=== PATIENT | male | born 1990 | race African-American/Black ===

== ENCOUNTER 2019-10-18 12:56 | Emergency (ER) | payer SELFPAY ==
[2019-10-18 13:02] VITALS: BP 143/81
[2019-10-18] MEDS ORDERED: PREDNISONE 20 MG TABLET PO ONE (13:29)
[2019-10-18] MEDS ORDERED: FAMOTIDINE 20 MG TABLET PO ONE (13:30)
--- NOTE | 2019-10-18 13:34 | ER Document Report ---
HPI - HPI Time Seen by Provider: 10/18/19 13:26 Notes: CHIEF COMPLAINT: Hives HPI: 29-year-old male presenting to the emergency department complaining of urticaria. Has been ongoing for 3 to 4 days. Believes it might of been a detergent that they switched to earlier in the week. Complains of hives to the axilla, waistline, back of the neck, hands, legs. No shortness of breath no fever no cough. No sore throat. No new medications or foods. Took Benadryl at home which did help resolve the rash for several hours but then it would come back. ROS: See HPI - all other systems were reviewed and are otherwise negative Constitutional: no fever Eyes: no drainage, no blurred vision ENT: no runny nose, no sore throat Cardiovascular: no chest pain Resp: no SOB, no cough GI: no vomiting, no diarrhea, no abdominal pain : no dysuria Integumentary: + rash Allergy: + hives Musculoskeletal: no extremity pain or swelling Neurological: no numbness/tingling, no weakness MEDICATIONS: I agree with the patient medications as charted by the RN. ALLERGIES: I agree with the allergies as charted by the RN. PAST MEDICAL HISTORY/PAST SURGICAL HISTORY: Reviewed and agree as charted by RN. SOCIAL HISTORY: Reviewed and agree as charted by RN. FAMILY HISTORY: No significant familial comorbid conditions directly related to patient complaint EXAM: Reviewed vital signs as charted by RN. CONSTITUTIONAL: Alert and oriented and responds appropriately to questions. Well-appearing; well-nourished HEAD: Normocephalic; atraumatic EYES: PERRL; Conjunctivae clear, sclerae non-icteric ENT: normal nose; no rhinorrhea; moist mucous membranes; pharynx without lesions noted, no uvula edema or deviation, no tonsillar hypertrophy, phonation normal NECK: Supple without meningismus; non-tender; no cervical lymphadenopathy, no masses CARD: RRR; no murmurs, no clicks, no rubs, no gallops; symmetric distal pulses RESP: Normal chest excursion without splinting or tachypnea; breath sounds clear and equal bilaterally; no wheezes, no rhonchi, no rales, pulse oximetry 100% on room air not hypoxic ABD/GI: Normal bowel sounds; non-distended; soft, non-tender, no rebound, no guarding; no palpable organomegaly or masses. BACK: The back appears normal and is non-tender to palpation, there is no CVA tenderness EXT: Normal ROM in all joints; non-tender to palpation; no cyanosis, no effusions, no edema SKIN: Normal color for age and race; warm; dry; good turgor; generalized scattered urticarial lesions are noted on the bilateral legs axilla waistline and posterior neck. Lesions do janelle with pressure. No petechia purpura or vesicles. NEURO: Moves all extremities equally; Motor and sensory function intact PSYCH: The patient's mood and manner are appropriate. Grooming and personal hygiene are appropriate. MDM: 29-year-old male with generalized urticaria. No respiratory difficulty. Will start on steroids antihistamines return instructions Past Medical History - Social History Smoking Status: Unknown if Ever Smoked Family History: Reviewed & Not Pertinent Course - Vital Signs Vital signs: Temp Pulse Resp BP Pulse Ox 98.6 F 63 18 143/81 H 98 10/18/19 13:01 10/18/19 13:01 10/18/19 13:01 10/18/19 13:10/18/19 13:01 Discharge - Discharge Clinical Impression: Urticaria Condition: Stable Disposition: HOME, SELF-CARE Instructions: Acute Urticaria ([facility]) Additional Instructions: 1. take the medications as prescribed 2. take Benadryl 25-50 mg three times daily for 3-4 days 3. follow up recheck with PCP for further evaluation and treatment, call for appt. 4. return for any shortness of breath or worsening rash or condition Prescriptions: Prednisone [Deltasone 20 mg Tablet] 2 tab PO DAILY 5 Days #10 tablet Famotidine [Pepcid 20 mg Tablet] 20 mg PO BID #12 tablet Referrals: NIGEL GAINES MD [COMMUNITY BASED STAFF] - Follow up as needed
== END 2019-10-18 13:39 | disposition home or self-care (01) ==
LOC: ER 12:56
DX: L50.9 Urticaria, unspecified (principal)
CPT/HCPCS: 99283; J7512

== ENCOUNTER 2019-10-22 11:40 | Emergency (ER) | payer SELFPAY ==
[2019-10-22 12:03] VITALS: BP 139/91
--- NOTE | 2019-10-22 13:04 | ER Document Report ---
HPI - HPI Patient complains to provider of: Hives Time Seen by Provider: 10/22/19 12:53 Onset: Last week Onset/Duration: Persistent Quality of pain: No pain Severity: None Pain Level: Denies Context: 29-year-old male presented to ED for allergic urticaria to arms and legs. He states he was seen a couple days ago and was given prednisone but he did not think he was getting enough and his hives are back. He was seen on 17 October and given 5 days worth of prednisone. I have instructed him that we cannot continually give steroids but he will need to follow-up with an transition mgr. I did give him page slowly decreasing dose of steroids but told him to call the primary care and transition mgr immediately tomorrow to schedule follow-up. I did te ll him that he would need to continue taking the Pepcid and Benadryl for his itching. I also informed him that when he goes out in the heat or takes a hot shower it will make the rash worse and more uncomfortable. Exacerbated by: Denies Relieved by: Denies Similar symptoms previously: Yes Recently seen / treated by doctor: Yes - ROS ROS below otherwise negative: Yes - CONSTITUTIONAL Constitutional: DENIES: Fever, Chills - EENT EENT: DENIES: Sore Throat, Ear Pain, Nasal Drainage-Clear, Nasal Drainage- Purulent, Congestion, Eye problems - NEURO Neurology: DENIES: Headache, Weakness, Vision blurred, Dizzinesss / Vertigo - CARDIOVASCULAR Cardiovascular: DENIES: Chest pain - RESPIRATORY Respiratory: DENIES: Trouble Breathing, Coughing - GASTROINTESTINAL Gastrointestinal: DENIES: Abdominal Pain, Nausea, Patient vomiting, Diarrhea, Constipation, Black / Bloody Stools - URINARY Urinary: DENIES: Dysuria, Urgency, Frequency - REPRODUCTIVE Reproductive: DENIES: :, Postmenopausal, Abnormal bleeding / discharge - MUSCULOSKELETAL Musculoskeletal: DENIES: Extremity pain, Back Pain, Neck Pain, Swelling - DERM Skin Color: Other - Allergic urticaria Skin Problems: None Past Medical History - General Information source: Patient - Social History Smoking Status: Former Smoker Chew tobacco use (# tins/day): No Frequency of alcohol use: Occasional Drug Abuse: None Family History: Reviewed & Not Pertinent Patient has suicidal ideation: No Patient has homicidal ideation: No - Past Medical History Cardiac Medical History: Reports: None Pulmonary Medical History: Reports: None EENT Medical History: Reports: None Neurological Medical History: Reports: None Endocrine Medical History: Reports: None Renal/ Medical History: Reports: None Malignancy Medical History: Reports None GI Medical History: Reports: None Musculoskeletal Medical History: Reports None Skin Medical History: Reports None Psychiatric Medical History: Reports: None Traumatic Medical History: Reports: None Infectious Medical History: Reports: None Surgical Hx: Negative Past Surgical History: Reports: None Vertical Provider Document - CONSTITUTIONAL Agree With Documented VS: Yes Exam Limitations: No Limitations General Appearance: WD/WN, No Apparent Distress - HEENT HEENT: Atraumatic, Normal ENT Exam, Normocephalic, PERRLA - NECK Neck: Normal Inspection - RESPIRATORY Respiratory: Breath Sounds Normal - CARDIOVASCULAR Cardiovascular: Regular Rate, Regular Rhythm, No Murmur - GI/ABDOMEN Gastrointestinal: Abdomen Soft, Abdomen Non-Tender, No Organomegaly, Normal Bowel Sounds - BACK Back: Normal Inspection - MUSCULOSKELETAL/EXTREMETIES Musculoskeletal/Extremeties: MAEW, FROM, Non-Tender - NEURO Level of Consciousness: Awake, Alert, Appropriate Motor/Sensory: No Motor Deficit, No Sensory Deficit, Positive Babinski's Sign Deep Tendon Reflexes: 2+ - DERM Integumentary: Rash - Urticaria Course - Re-evaluation Re-evalutation: 10/22/19 22:23 Patient was given instructions for allergic urticaria treatment. He was also given strict instructions that he needs to follow-up with a primary care and transition mgr as the emergency room cannot continually treat an allergic urticaria. This needs to be seen as outpatient find the cause of the rash. - Vital Signs Vital signs: Temp Pulse Resp BP Pulse Ox 98.8 F 63 15 139/91 H 98 10/22/19 12:02 10/22/19 12:02 10/22/19 12:02 10/22/19 12:10/22/19 12:02 Discharge - Discharge Clinical Impression: Urticaria Condition: Stable Disposition: HOME, SELF-CARE Additional Instructions: ACUTE ALLERGIC REACTION: Your symptoms are due to an allergic reaction. Allergy can cause hives, swelling of the hands, feet, and face, hoarseness, and difficulty swallowing or breathing. It may be due to exposure to medication, animal dander, foods, infection, or insect bites. Medication is a common cause, even when prior use of this same medication caused no problems. Acute treatment may include adrenalin and antihistamines. Usually, the specific allergic agent can't be identified unless repeated episodes occur. Home treatment includes the following: (1) Stop any suspicious medications. This will be discussed with you. (2) Oral antihistamines for the next four to five days. Example, diphenhydramine (Benadryl) every four hours. (3) You may also use cimetidine (Tagamet), ranitidine (Zantac), or famotidine (Pepcid) every four hours if diphenhydramine is not controlling itching and hives. (4) Avoid aspirin until the hives completely disappear. (5) Avoid hot baths or showers until the hives are completely gone. Call the doctor if faintness, difficulty swallowing, tightness in the chest, or wheezing occurs. STEROID MEDICATION: You have been given a medicine of the cortisone/steroid class. This medication is used to control inflammation or allergy. It is usually only given for a short period of time, until the acute process subsides. There are usually no side effects from short-term use of cortisone-like medications. Some persons feel an increased sense of well-being and are not sleepy at bedtime. Long-term use of cortisone medications is best avoided, unless required for a severe condition. If your condition does not remit, or relapses after the course of corticosteroid medication, you should consult your physician. ACID-SUPPRESSING MEDICATION: You have a prescription for medicine which reduces the stomach's secretion of acid. Examples include Zantac, Tagament, and Pepcid. These drugs are often used to allow healing of ulcers or esophagitis. They may be needed to prevent recurrence of ulcers in some patients, or to prevent damage from acid reflux in the esophagus. Take all medication as prescribed, even after the pain is gone. Regular antacids may be added as needed if you have symptoms while taking this medicine. These medications sometimes are prescribed for allergic reactions because they have anti-histaminic effects and relieve the rash and itching of the reaction. There are usually no side effects from this medication. But, in rare cases and particularly in the elderly, serious problems can occur. Contact your doctor if there is fever, rash, hallucinations, confusion, or unusual bruising. Contact your doctor at once if you develop lightheadedness, black or bloody stool, or bloody vomitus. USE OF DIPHENHYDRAMINE: The use of diphenhydramine (Benadryl) has been recommended to control allergic symptoms. The 25 mg strength is available over- the-counter, as well as the elixir. This antihistamine is used for many symptoms. It's useful for itching, watering eyes and nose, allergic swelling, hives, and insect stings. The medication can be repeated four times daily. Age Elixir (12.5 mg/tsp) 25 mg pill 2-3 yr 1/2 tsp 4-8 yr 1 tsp 9-14 yr 2 tsp one tab adult 1-2 tabs Antihistamines may cause drowsiness, especially with the first dose. Do not operate machinery or drive while under the effects of the medication. Do not combine the medication with alcohol, or with any other medication without talking to your doctor. FOLLOW-UP CARE: If you have been referred to a physician for follow-up care, call the physicians office for an appointment as you were instructed or within the next two days. If you experience worsening or a significant change in your symptoms, notify the physician immediately or return to the Emergency Department at any time for re-evaluation. [facility] Open ? Closes 6PM DIRECTIONS Yuliet Rodriguez MD [employer] [address] Dominick Benjamin MD [address] [place] [address] Prescriptions: Prednisone [Deltasone 10 mg Tablet] 10 mg PO ASDIR PRN #21 tablet PRN Reason: Forms: Elevated Blood Pressure, Return to Work Referrals: NIGEL GAINES MD [COMMUNITY BASED STAFF] - Follow up as needed
== END 2019-10-22 13:20 | disposition home or self-care (01) ==
LOC: ER 11:40
DX: L50.0 Allergic urticaria (principal); Z87.891 Personal history of nicotine dependence
CPT/HCPCS: 99283

== ENCOUNTER 2019-10-26 11:19 | Emergency (ER) | payer SELFPAY ==
[2019-10-26] MEDS ORDERED: DIPHENHYDRAMINE HCL 50 MG/ML VIAL IV ONE (11:56)
[2019-10-26] MEDS ORDERED: EPINEPHRINE INJ/PF 1 MG/1 ML AMPULE IM ONE ×2 (11:56→14:04)
[2019-10-26] MEDS ORDERED: METHYLPREDNISOLONE INJ 125 MG/2 ML SDV IV ONE (11:56)
--- NOTE | 2019-10-26 11:58 | ER Document Report ---
ED Medical Screen (RME) - General Chief Complaint: Allergic Reaction Stated Complaint: HIVES/BREATHING DIFFICULTY Time Seen by Provider: 10/26/19 11:44 Mode of Arrival: Ambulatory Information source: Patient Notes: 29-year-old male patient has been seen multiple times for allergic reaction this time he is lips and mouth are swollen and he has some shortness of breath. He will need epinephrine steroids and Benadryl this time. I have contacted [facility] and asked them to get him in touch with social work instructor tomorrow. I have greeted and performed a rapid initial assessment of this patient. A comprehensive ED assessment and evaluation of the patient, analysis of test results and completion of medical decision making process will be conducted by an additional ED providers. - Related Data Allergies/Adverse Reactions: No Known Allergies Allergy (Verified 10/22/19 12:50) Past Medical History - Social History Frequency of alcohol use: None Drug Abuse: None Physical Exam - Vital signs Vitals: Temp Pulse Resp BP Pulse Ox 98.4 F 64 20 171/94 H 100 10/26/19 11:23 10/26/19 11:23 10/26/19 11:23 10/26/19 11:23 10/26/19 11:23 Course - Vital Signs Vital signs: Temp Pulse Resp BP Pulse Ox 98.4 F 64 20 171/94 H 100 10/26/19 11:23 10/26/19 11:23 10/26/19 11:23 10/26/19 11:23 10/26/19 11:23
[2019-10-26] MEDS ORDERED: FAMOTIDINE INJ/PF 20 MG/2 ML SDV IV ONE (12:20)
--- NOTE | 2019-10-26 14:14 | ER Document Report ---
ED General - General Chief Complaint: Allergic Reaction Stated Complaint: HIVES/BREATHING DIFFICULTY Time Seen by Provider: 10/26/19 11:44 Mode of Arrival: Ambulatory - HPI Notes: Chief complaint: Rash, itching and swelling of lips History of present illness: 29-year-old male seen here by midlevel provider on October 17 with new onset of an urticarial rash with undetermined precipitating factor now returns with ongoing rash and interval development of some swelling of his lips. Patient does not take any regular medications prescription or [id number]. He had used some new aftershave lotion before the original onset of his rash but discontinued this at that time and has not uses any further. He denies consumption of new foods and does not have any new pets. Patient was started on H1 and H2 dorothy and also a burst of oral prednisone at time of his first visit. His rash initially got somewhat better but came back again precipitating a second visit on October 21. He was restarted on a longer course of steroids encouraged to continue H1 and H2 dorothy and follow-up with his primary care doctor. He returns today having taken all the medication as instructed but he reports that his rash is persistent primarily around the waistline and over the ventral aspect of both wrists. This is very pruritic. He also today has developed swelling of his lower lip and some slight tightness in his throat. He awakened with the symptoms this morning. - Related Data Allergies/Adverse Reactions: No Known Allergies Allergy (Verified 10/22/19 12:50) Past Medical History - General Information source: Patient, Relative, [facility] Records - Social History Smoking Status: Never Smoker Frequency of alcohol use: None Drug Abuse: None Family History: Reviewed & Not Pertinent Review of Systems - Review of Systems Notes: Constitutional: Negative for fever. HENT: As per HPI. Eyes: Negative for visual changes. Cardiovascular: Negative for chest pain. Respiratory: Negative for shortness of breath. Gastrointestinal: Negative for abdominal pain, vomiting or diarrhea. Genitourinary: Negative for dysuria. Musculoskeletal: Negative for back pain. Skin: As per HPI. Neurological: Negative for headaches, weakness or numbness. 10 point ROS negative except as marked above and in HPI. Physical Exam - Vital signs Vitals: Temp Pulse Resp BP Pulse Ox 98.4 F 64 20 171/94 H 100 10/26/19 11:23 10/26/19 11:23 10/26/19 11:23 10/26/19 11:23 10/26/19 11:23 - Notes Notes: GENERAL: Well-developed well-nourished with facial edema primarily affecting the lower lip. SKIN: Good turgor. Scattered faint urticarial rash of volar aspect of both forearms and anterior trunk. HEAD: Normocephalic atraumatic. EYES: PERRLA. EOMI. Conjunctivae and sclerae clear. EARS: CANALS AND TMS CLEAR. NOSE: CLEAR. MOUTH/THROAT: Moist mucosa. No visible edema of tongue. No visible edema of uvula good dentition. No stridor or edema. No drooling. NECK: Supple. No masses or thyromegaly. No adenopathy. Carotids 2+ without bruits. No JVD. BACK: Symmetrical without tenderness. CHEST: Respirations unlabored. Breath sounds clear and symmetrical. HEART: Regular rhythm. No murmur gallop or rub. ABDOMEN: Soft nontender without masses, organomegaly or rebound. Bowel sounds normally active. No bruits. GENITALIA: Deferred. EXTREMITIES: No edema. No calf tenderness. Cap refill less than 1.5 seconds. Dorsalis pedis and posterior tibial pulses 3+ and symmetrical. NEUROLOGICAL: GCS 15. Alert and oriented x3. Normal gait. Fluent speech. Cranial nerves II through XII intact. Sensorimotor and cerebellar normal. Normal tone. PSYCHIATRIC: Appropriate affect. Course - Re-evaluation Re-evalutation: 10/26/19 14:15 Recheck at this time shows significant improvement. Lower lip edema is about 50% resolved. Patient is speaking and swallowing without any difficulty. His chest is clear and he is hemodynamically stable. He is moderately sedated from the IV Benadryl. I will give him an additional dose of IV epinephrine and observe him here for a longer period of time before making further disposition. 10/26/19 15:55 Edema and rash resolved. Patient feels better and wants to eat and also requests discharge. I think this is appropriate. Advised him to see his primary care doctor tomorrow and needs to get a referral to an director of teenage activities. Continue present meds. I have also given a prescription for an EpiPen. He understands he may return here immediately for new or worsening symptoms. Findings, clinical impression and plan of treatment have been discussed with patient/family. Understanding of current findings and recommendations has been acknowledged by them and there is agreement regarding disposition and follow-up. - Vital Signs Vital signs: Temp Pulse Resp BP Pulse Ox 98.4 F 64 19 132/65 H 100 10/26/19 11:23 10/26/19 11:23 10/26/19 15:31 10/26/19 15:31 10/26/19 15:31 Critical Care Note - Critical Care Note Total time excluding time spent on procedures (mins): 35 - IV, O2, monitor. IM epinephrine. IV Benadryl and Pepcid. Discharge - Discharge Clinical Impression: Anaphylaxis Qualifiers: Encounter type: initial encounter Qualified Code(s): T78.2XXA - Anaphylactic shock, unspecified, initial encounter Condition: Stable Disposition: HOME, SELF-CARE Additional Instructions: Angioedema Angioedema is an allergic swelling of the soft tissues of the body. The lips and mouth are most commonly involved. Food, even something you've eaten frequently, can cause angioedema. In many cases it's not obvious what caused the swelling. Acute treatment may include adrenalin and antihistamines. If the cause is known, you must avoid this food or medicine in the future. If angioedema affects your air passages, it can be life-threatening. Return at once if you develop shortness of breath, faintness, severe pain, inability to swallow, or if swelling worsens.swelling worsens. See your doctor tomorrow morning and discussed need for referral to an director of teenage activities. You have been given an EpiPen for emergency use. Continue your other regular medications as previously prescribed.Epinephrine Prescriptions: Epinephrine [Epipen 2-Eleuterio] 0.3 mg IM ONCE PRN #1 packet PRN Reason: Forms: Return to Work [facility] - Follow up as needed
[2019-10-26 16:12] VITALS: BP 116/63
== END 2019-10-26 16:17 | disposition home or self-care (01) ==
LOC: ER 11:19
DX: T78.2XXA Anaphylactic shock, unspecified, initial encounter (principal); L50.9 Urticaria, unspecified; X58.XXXA Exposure to other specified factors, initial encounter
CPT/HCPCS: 99284; 96372; 96374; 96375; J1200; J0171; J2930; S0028

== ENCOUNTER 2020-01-01 15:02 | Emergency (ER) | payer SELFPAY ==
[2020-01-01] MEDS ORDERED: FAMOTIDINE 20 MG TABLET PO ONE (15:14)
[2020-01-01] MEDS ORDERED: HYDROXYZINE HCL 10 MG TABLET PO ONE (15:14)
[2020-01-01] MEDS ORDERED: METHYLPREDNISOLONE INJ 125 MG/2 ML SDV IM ONE (15:14)
--- NOTE | 2020-01-01 16:36 | ER Document Report ---
ED Allergic Reaction - General Chief Complaint: Allergic Reaction Stated Complaint: POSSIBLE ALLERGIC REACTION, DIFFICULTY BREATHING Time Seen by Provider: 01/01/20 15:07 Primary Care Provider: [facility] [Provider Group] - Follow up in 3-5 days - HPI Notes: 29-year-old male to the emergency department with girlfriend with complaints of allergic reaction. He states that he has had this in the past and last time it happened was in October of this year. He states that he has been trying to see an hematology technician but he has not been able to get in. He states that the rash started 2 to 3 days ago on both his arms on the back of his neck and in his groin area. He denies any new detergents, lotions, soaps, diet changes. States he feels a little bit short of breath but denies any throat swelling lip swelling or tongue swelling. - Related Data Allergies/Adverse Reactions: No Known Allergies Allergy (Verified 10/22/19 12:50) Past Medical History - General Information source: Patient, Relative - Significant other - Social History Smoking Status: Current Every Day Smoker Frequency of alcohol use: Occasional Drug Abuse: None Family History: Reviewed & Not Pertinent Patient has homicidal ideation: No Review of Systems - Review of Systems Constitutional: denies: Chills, Fever EENT: No symptoms reported. denies: Throat pain, Difficulty swallowing, Throat swelling, Mouth swelling Cardiovascular: denies: Chest pain, Palpitations, Heart racing, Dizziness, Lightheaded Respiratory: Short of breath. denies: Cough, Wheezing Gastrointestinal: denies: Abdominal pain Genitourinary: No symptoms reported Musculoskeletal: No symptoms reported Skin: No symptoms reported Hematologic/Lymphatic: No symptoms reported Neurological/Psychological: No symptoms reported -: Yes All other systems reviewed and negative Physical Exam - Vital signs Vitals: Temp 97.9 F 01/01/20 15:09 Temp Pulse Resp BP Pulse Ox 97.8 F 59 L 18 120/82 100 01/01/20 17:24 01/01/20 17:24 01/01/20 17:24 01/01/20 17:24 01/01/20 17:24 Intake & Output 12/31/19 01/01/20 01/02/20 06:59 06:59 06:59 Weight 86.2 kg Weight/Height Weight 86.2 kg Height 5 ft 11 in Interpretation: Normal - General General appearance: Appears well, Alert In distress: None - HEENT Head: Normocephalic, Atraumatic Eyes: Normal Pupils: PERRL Ears: Normal External canal: Normal Tympanic membrane: Normal Sinus: Normal. No: Swelling Nasal: Normal. No: Swelling Mouth/Lips: Normal. No: Angioedema, Caries Mucous membranes: Normal, Dry Pharynx: Normal. No: Erythema, Exudate, Peritonsillar abscess, Post nasal drainage, Retropharyngeal abscess, Tonsillar hypertrophy, Uvular edema, Potential airway comprom. Neck: Normal, Supple. No: Lymphadenopathy - Respiratory Respiratory status: No respiratory distress Chest status: Nontender. No: Accessory muscle use Breath sounds: Normal. No: Decreased air movement, Rales, Rhonchi, Stridor, Wheezing Chest palpation: Normal - Cardiovascular Rhythm: Regular Heart sounds: Normal auscultation Murmur: No - Abdominal Inspection: Normal Distension: No distension Bowel sounds: Normal Tenderness: Nontender. No: Tender, McBurney's point, Guillermo's sign, Guarding, Rebound Organomegaly: No organomegaly - Back Back: Normal, Nontender - Neurological Neuro grossly intact: Yes Cognition: Normal Orientation: AAOx4 Mcdermitt Coma Scale Eye Opening: Spontaneous Mcdermitt Coma Scale Verbal: Oriented Aleida Coma Scale Motor: Obeys Commands Aleida Coma Scale Total: 15 Speech: Normal Cranial nerves: Normal Cerebellar coordination: Normal Motor strength normal: LUE, RUE, LLE, RLE Additional motor exam normals: Equal adult caregiver Sensory: Normal - Psychological Associated symptoms: Normal affect, Normal mood - Skin Skin Temperature: Warm Skin Moisture: Dry Skin irregularity: Rash - There are raised macules consistent with urticaria to the bilateral arms back of the neck into the groin. There is no desquamation. There is no excoriation. There is no vesicles. Does not involve his face. Course - Re-evaluation Re-evalutation: 01/01/20 17:34 Impression: Allergic reaction with hives. After Medrol, Atarax, Pepcid patient's rash seems to be decreasing. He continues to have a patent airway with no lip swelling, tongue swelling, uvular swelling. He states he feels a lot less itchy. Will send home with Atarax Pepcid and Medrol Dosepak. Encouraged him to get the EpiPen that they have at the pharmacy filled. Also spoke with David Ramos about follow-up for allergies for the patient patient has been given a application for [facility] and also David Ramos's number for follow-up. Patient and significant other agree with plan. They are encouraged to return if any worsening symptoms. - Vital Signs Vital signs: Temp Pulse Resp BP Pulse Ox 97.8 F 59 L 18 120/82 100 01/01/20 17:24 01/01/20 17:24 01/01/20 17:24 01/01/20 17:24 01/01/20 17:24 Discharge - Discharge Clinical Impression: Hives Allergic reaction Qualifiers: Encounter type: initial encounter Qualified Code(s): T78.40XA - Allergy, un specified, initial encounter Condition: Stable Disposition: HOME, SELF-CARE Instructions: Acute Allergic Reaction ([facility]) Additional Instructions: Please follow-up with the [facility]. They can help you get established with an hematology technician. If you have any difficulty with getting establ ished with [facility] please call David Ramos our case aide at [phone]. Please take all steroids and continue to take Pepcid and Atarax. Return if worsening symptoms. Prescriptions: Hydroxyzine HCl [Atarax 10 mg Tablet] 20 mg PO Q8H #30 tablet Methylprednisolone [Medrol Dosepack (4 mg/Tab) 21 Tab/Dosepak] 4 mg PO ASDIR PRN #21 tab.ds.pk PRN Reason: Famotidine [Pepcid 20 mg Tablet] 20 mg PO BID #20 tablet Forms: Return to Work Referrals: [facility] [Provider Group] - Follow up in 3-5 days
[2020-01-01 17:25] VITALS: BP 120/82
== END 2020-01-01 17:29 | disposition home or self-care (01) ==
LOC: ER 15:02
DX: L50.0 Allergic urticaria (principal); R06.00 Dyspnea, unspecified; R06.02 Shortness of breath; F17.200 Nicotine dependence, unspecified, uncomplicated
CPT/HCPCS: 99284; 96372; J2930